=== PATIENT | female | born 2000 | race Caucasian/White ===

== ENCOUNTER 2021-06-13 03:17 | Emergency (ER) | payer OTHER ==
[~2021-06-13] VITALS: Ht 157.4 cm; Wt 90.7 kg
[~2021-06-13 03:17] MED LIST: AMOXICILLIN500 M2 PO; AMOXICILLIN500 MG PO; BIRTH CONTROL1 EAC1; CIPRO250 MG PO; INDERAL20 MG PO; MIRALAX POWDER255 GM PO; MOTRIN400 MG PO; PROZAC10 M1; PSEUDOEPHEDRINE60 MG PO; PYRIDIUM200 MG PO; Synthroid,Lev100 MCG PO; TOPAMAX15 MG; TYLENOL W/CODEI1 TA2 PO; ZOLOFT100 MG PO; ZYRTEC10 MG PO
[2021-06-13 03:32] VITALS: BP 106/67
[2021-06-13] MEDS ORDERED: NAPROSYN500 MG PO (06:04)
== END 2021-06-13 06:50 | disposition home or self-care (01) ==
LOC: ED 03:17
DX: S06.0X0A Concussion without loss of consciousness, initial encounter (principal); S63.501A Unspecified sprain of right wrist, initial encounter; S00.83XA Contusion of other part of head, initial encounter; M79.641 Pain in right hand; F17.200 Nicotine dependence, unspecified, uncomplicated; Z88.2 Allergy status to sulfonamides; Z79.899 Other long term (current) drug therapy; Z98.890 Other specified postprocedural states; W06.XXXA Fall from bed, initial encounter; Y93.89 Activity, other specified; Y92.89 Other specified places as the place of occurrence of the external cause; Y99.8 Other external cause status